=== PATIENT | male | born 1975 | race Two or more races ===

== ENCOUNTER 2025-10-29 05:28 | Inpatient (IN) | payer OTHER, SELFPAY ==
[2025-10-29] VITALS (7 sets, daily range): BP systolic 115–179; BP diastolic 77–111; BMI 33.1
[2025-10-29] MEDS: ZOFRAN 4 MG IV (00:57)
[2025-10-29] MEDS: DILAUDID 1 MG IV (00:57)
[2025-10-29 01:01] LABS: Hematocrit 41.5 % (39.0-52.0); Hemoglobin 14.6 g/dL (13.0-18.0); Mean Corp Hgb Conc. 35.2 g/dL (33.0-37.0); Mean Corpuscular Volume 85.2 fL (80.0-94.0); Nucleated Red Blood Cells % 0 % (-); Platelet Count 258 10^3/uL (130-400); Red Cell Dist. Width 12.5 % (11.5-14.5)
[2025-10-29 01:09] LABS: ALT (SGPT) 25 U/L (0-50); AST (SGOT) 41 U/L (17-59); Albumin 4.3 g/dl (3.5-5.0); Alkaline Phosphatase 53 U/L (38-126); Blood Urea Nitrogen 16 mg/dl (9-20); Calcium 9.2 mg/dl (8.4-10.2); Carbon Dioxide 29 mmol/L (22-30); Chloride 102 mmol/L (98-107); Estimated Creatinine Clearance 110 ml/min; Glucose 111 mg/dl (70-99); Potassium 3.6 mmol/L (3.5-5.1); Sodium 138 mmol/L (135-145); Total Protein 6.9 g/dl (6.3-8.2); eGFR > 60.00
[2025-10-29] MEDS: DILAUDID 0.5 MG IV ×2 (01:19→01:54)
[2025-10-29 03:27] LABS: Urine Character Clear (Clear)
--- NOTE | 2025-10-29 03:51 | ED.GENMED ---
History of Present Illness
General
Chief Complaint: Post Operative Problem(s)
Source: patient and family
Exam Limitations: none
Time Seen by Provider: 10/29/25 00:19
Nursing documentation reviewed up to this point in time: agreed with
History of Present Illness
History of Present Illness:
Note:
CHIEF COMPLAINT(S)
Abdominal pain.
HISTORY OF PRESENT ILLNESS
The patient is a 50-year-old male presenting with acute abdominal pain. He reports the onset of symptoms two days ago with increasing severity. The patient describes the pain as a bloating/sharp sensation in his abdomen, which is consistent with
discomfort. He mentions finding relief in specific positions, suggesting some positional variation in pain relief. The patient denies experiencing fever; however, his awareness of any fever is uncertain. The patient attempted self-care measures with
[id number] medications like acetaminophen, which provided no relief. He also reports an inability to retain fluids, as attempting to drink water leads to vomiting. Patient had had a cystoscopy with TURP procedure after a CT urogram showed
possible endophytic mass posterior aspect of the bladder suspicious for transitional cell carcinoma. He had this procedure by Dr. Brandan Martin ([phone]) on Monday at [facility]. At
ALLERGIES
No known drug allergies
Physical examination:
Nursing notes reviewed and agree with documentation. Allergy list reviewed and noted.
PHYSICAL EXAMINATION:
GENERAL APPEARANCE: The patient is alert, oriented to person, place, and time, in moderate acute to severe flank pain
VITAL SIGNS: Reviewed and agree with documentation
HENT: Head is normocephalic and atraumatic. The sinuses are nontender.The nares are patent. Oropharynx is clear
EYES: Pupils are equal and reactive to light and accommodation. Extraocular muscles intact. Conjunctiva normal, Sclera normal. Eyelids normal to inspection
NECK: Supple without lymphadenopathy. Trachea is midline. Normal range of motion
CARDIOVASCULAR: Regular rate and rhythm. Heart sounds normal
RESPIRATORY/CHEST: No respiratory distress noted. Clear to auscultation, bilaterally, no crackles, rales or wheezes are heard. Equal chest expansion
ABDOMEN: Soft, nontender, nondistended with good bowel sounds heard.
BACK: Normal inspection, left side CVA tenderness.
UPPER EXTREMITIES: Range of motion normal, Motor strength normal, no cyanosis, no edema.
LOWER EXTREMITIES: Normal range of motion, Motor strength normal, no cyanosis, no edema.
NEUROLOGICAL: Gross nonfocal. Speech normal, GCS 15, No obvious cerebellar deficits noted. Memory is intact. Cranial nerves intact to screening exam
SKIN: Warm and dry, no rash or lesion, no discoloration, skin intact.
PSYCH: Normal and appropriate interaction. Normal affect
PLAN
1. Administer medication for pain relief.
2. Conduct a thorough abdominal examination.
3. Perform blood work to aid in diagnosis and assess for potential causes of abdominal pain.
4. Perform a CT scan
DIFFERENTIAL DIAGNOSIS
The Differential Diagnosis includes, in no particular order and is not limited to:
1. Postoperative swelling/obstruction
2. Constipation
3. Abdominal hernia
4. Bleeding peptic ulcer disease
5. Intestinal obstruction
6. Pancreatitis
7. Colitis
8. Gallbladder disease
9. Renal colic
10. Mesenteric ischemia
Disposition:
SUMMARY OF ENCOUNTER
A 50-year-old male presented with acute abdominal pain. The pain, described as a sharp, bloating sensation, began two days prior to the visit and progressively worsened. The patients attempts at self-care, including taking acetaminophen, were
ineffective, and he experienced vomiting when trying to drink fluids. There was no confirmed fever. Based on the evaluation and recommendations from surgical consultations, it was determined that the patient would benefit from continued observation
and pain management.
Spoke with Dr. Mckinney, urology who is aware of patient's condition and surgical procedure. Patient to be made NPO. Dr. Mckinney reviewed the scan personally and diagnosed swelling about the ureter.
DISPOSITION
Admit for continued observation and pain control.
ASSESSMENT
The patients symptoms are suggestive of an acute abdominal condition, with potential differential diagnoses including abdominal hernia, intestinal obstruction, pancreatitis, or other gastrointestinal issues. The pains positional variability and
severe nature necessitate inpatient observation and management.
PLAN
1. Admit the patient for ongoing monitoring and pain management.
2. Conduct a thorough abdominal examination and continue assessing changes in symptoms.
3. Perform necessary blood work and imaging to identify the cause of the pain.
MEDICAL DECISION MAKING
- Number and Complexity of Problems Addressed: Chronic conditions affecting care and differential diagnosis include gastroenteritis, constipation, abdominal hernia, bleeding peptic ulcer disease, intestinal obstruction, pancreatitis, colitis,
gallbladder disease, renal colic, and mesenteric ischemia.
DIAGNOSIS
1. Abdominal pain, unspecified (R10.9)
2. Vomiting (R11.10)
Phy Exam
Physical Exam
Physical Exam:
.
Course
Orders/Labs/Results
Orders:
Orders
10/29/25 00:37
CMP [Comprehensive Metabolic Panel] Urgent
Complete Blood Count/With Diff Urgent
10/29/25 00:43
CT Abd/pelvis W Iv Cont Urgent
Comment:
Reason For Exam: llq pain s/p bladder mesh removal
HYDROmorphone [Dilaudid] 1 mg IV NOW STA
Ondansetron Injectable [Zofran] 4 mg IV NOW STA
10/29/25 00:58
Lactic Acid Urgent
10/29/25 01:15
HYDROmorphone [Dilaudid] 0.5 mg IV NOW STA
10/29/25 01:48
HYDROmorphone [Dilaudid] 0.5 mg IV NOW STA
10/29/25 03:02
Urinalysis Reflex To Culture Urgent
Date Specimen was Collected: 10/29/25
Time Specimen was Collected: 02:17
Urine Microscopic Reflex Cult Urgent
10/29/25 04:43
Ketorolac [Toradol] 15 mg IV NOW STA
10/29/25 05:17
Admit/Transfer Patient As Directed
Co-Sign Provider:
Level of Care: Inpatient admission
Assign to:: Medical/Surgical
Physician / Group: Boaz William
Diagnosis: Left kidney hydronephrosis
Reason for Hospitalization: iv analgesic
urology eval
may need pcn
Expected length of stay greater than two midnights?: Yes
ELOS- Estimated Length of Stay in days: 2
I certify the patient meets the requirements for IP care: Yes
PRN Pain Medication Management As Directed
May give lesser potent ordered pain med per pt: Yes
preference::
Protocol:: Medication orders for pain may be administered in a
manner that supports deferring to patient preference
when the pt is:
- Requesting an ordered lesser potent pain medication.
Least to most potent pain medications are defined
as: acetaminophen < NSAID < tramadol < opioids
(morphine, oxycodone, hydromorphone).
- Requesting a lesser dose of the same medication IF
ORDERED.
- Requesting a less intrusive route of administration
if both routes are prescribed by the provider (PO <
IV).
10/29/25 05:21
Code Status As Directed
Resuscitation Status: Full Code
10/29/25 05:23
Urine Culture Stat
SUSANNE Source: Urine
Specimen Description:
Obtained by: [facility]
Date Specimen was Collected: 10/29/25
Time Specimen was Collected: 05:27
10/29/25 05:44
Bisacodyl [Dulcolax] 10 mg RECTAL [id number] PRN
Docusate W/Senna [Senokot-S] 1 tablet PO BIDPRN PRN
HYDROmorphone [Dilaudid] 0.5 mg IV Q3HPRN PRN
HYDROmorphone [Dilaudid] 1 mg IV Q3HPRN PRN
Polyethylene Glycol Powder [Miralax] 17 grams PO DAILYPRN PRN
10/29/25 05:44
UROLOGY CONSULT Routine
Consulting Provider: Frantz Mckinney
Was physician already notified: Yes
Activity As Directed
Activity Level: As Tolerated
Vital Signs As Directed
Frequency: Per unit guidelines
DX Deep Vein Thrombosis Video Routine
10/29/25 Breakfast
NPO
Allow oral meds: Yes
Allow clear liquids: Sips of Clears
NPO with Ice Chips: Yes
Basic Metabolic Panel IN AM
Complete Blood Count/No Diff IN AM
0.45% Sodium Chloride 1000 ml [0.45%NaCl] 1,000 ml IV 80 mls/hr
Cefepime HCl [Maxipime] 1,000 mg IV Q8H
10/29/25 07:00
Ondansetron Injectable [Zofran] 4 mg IV Q6HPRN PRN
10/29/25 13:00
Ketorolac [Toradol] 15 mg IV Q8HPRN PRN
10/29/25 18:00
Enoxaparin Sodium [Lovenox] 40 mg SC QPM
Abnormal Lab Results
10/29/25 10/29/25
00:37 03:02
WBC 14.4 H 10^3/uL
(4.8-10.8)
Abs Immat Gran (auto) 0.1 H 10^3/uL
(0-0.05)
Absolute Neuts (auto) 11.6 H 10^3/uL
(1.4-6.5)
Absolute Monos (auto) 1.0 H 10^3/uL
(0.1-0.6)
Neutrophils % 80.5 H %
(42.2-75.2)
Lymphocytes % 11.2 L %
(20.5-51.1)
Glucose 111 H mg/dl
(70-99)
Ur Occult Blood Reflex 4+ A
(Negative)
Urine RBC >100 A /HPF
(0-2)
Urine Bacteria (Reflex) Few A
(Negative)
Urine Albumin (Reflex) 2+ A
(Neg - Trace)
10/29/25 00:37
10/29/25 00:37
Vital Signs
Initial and Last Documented VS:
Initial Vital Signs
Temp Pulse Resp BP Pulse Ox
98.0 F 72 17 173/107 98
10/29/25 00:20 10/29/25 00:20 10/29/25 00:20 10/29/25 00:20 10/29/25 00:20
Last Documented Vital Signs
Temp Pulse Resp BP Pulse Ox
98.0 F 52 16 179/111 94
10/29/25 00:20 10/29/25 05:10 10/29/25 05:10 10/29/25 05:10 10/29/25 05:10
*Pulse Oximetry
SaO2: 95
Oxygen Mode of Delivery: Room air
Patient hypoxic: no
*Critical Care Note
Total Time (30-74mins, 75-104mins- exclusive of procedures): Not Applicable
Update Note
Update Note:
CT ABDOMEN AND PELVIS WITH IV CONTRAST
Comparison: None available
IMPRESSION:
--Mild left-sided hydroureteronephrosis with delayed nephrogram and absent contrast excretion on the delayed phase, and associated left perinephric/periureteral fat stranding.
--Suspect there is obstruction of the distal left ureter secondary to focal wall thickening of the left posterior bladder at the UVJ. This bladder wall thickening may be reflective of postprocedural edema but possibility of an underlying neoplasm
is not excluded.
--Correlate clinically for superimposed urinary tract infection/pyonephritis.
--Trace gas in the urinary bladder, likely residual from the recent cystoscopy.
--Spleen is enlarged up to 14.2 cm. Small probable cyst in the inferior aspect.
--Cholecystectomy.
--No evidence for bowel obstruction or free air.
Case finalized on 10/29/25 02:[address] Fontaine, urology. He agrees with plan to admit patient for pain control. He has reviewed the CAT scan. We sent for records at [facility]. We were able to see discharge summary. We did determine the surgeon of record.
Opass this information. Brandan Martin [phone]. Patient to be admitted to the hospital service for pain control.
ED Attending Note
-
Portions of this chart may have been created with voice recognition software.� Occasional wrong word or��sound alike� substitutions may have occurred due to the inherent limitations of voice recognition software.
Discharge Plan
Departure
Patient Disposition: Admit
Date of Disposition: 10/29/25
Time of Disposition: 05:29
Presentation/result/management discussed w/ accepting MD/DO: Hospitalist
Discharge Problem:
Post-operative pain
Interventions
Interventions:
*Risk Screen - Suicide Last Done: 10/29/25 00:20
*General Assessment Last Done: 10/29/25 00:20
*Neglect/Abuse Screening Last Done: 10/29/25 00:20
*ED COVID-19 Vaccine History Last Done: 10/29/25 00:41
*ED Influenza Vaccine History Last Done: 10/29/25 00:41
[facility] Fall Risk Assessment Tool Last Done: 10/29/25 00:44
ED-Skin Assessment Last Done: 10/29/25 00:41
[2025-10-29 03:55] LABS: Urine Red Blood Cell >100 /HPF (0-2)
[2025-10-29] MEDS: TORADOL 15 MG IV (05:07)
--- NOTE | 2025-10-29 05:29 | HPS.HSE ---
Family Physician
-
Family Physician: Russell Lopez MD
Chief Complaint
-
flank pain post procedure
History of Present Illness
50 male history of bladder mass currently being worked up by urology at [place]. On 10/27/2025 had a cystoscopy with biopsy by Brandan Martin urology at [place] now presenting with acute onset left flank pain. Postprocedure noticed some blood
in urine that resolved and some burning with urination that resolved. Was tolerating procedure well up until last night when sharp intermittent pain occurred. In intensity continued to increase throughout. Not having difficulty urinating at this
time. No fevers or chills. States presented to [facility] ER due to severity of pain to get pain under control.
ED physician called urology recommended to admit here and urology will evaluate in the morning. May require PCN. Admit due to intractable pain requiring that has not resolved with multiple doses of IV analgesics
Medical History
Past Medical History
Past Medical History: Reports None
Past Surgical History: Reports Appendectomy, Cholecystectomy and Urological
Social History
Tobacco: Smoker (1ppd)
Alcohol: None
Drug: None
Family History
Family History: Not pertinent
Allergies / Home Medications
Allergies reflects when Allergies were last updated in [employer].
Home Medications with original date entered in [employer]
Allergy/Medication List:
Allergies
Allergy/AdvReac Type Severity Reaction Status Date / Time
No Known Allergies Allergy Unverified 10/29/25 00:20
Home Medications
cefuroxime axetil 500 mg tablet 500 mg PO BID 10/29/25
metaxalone 800 mg tablet 800 mg PO TID PRN back pain 10/29/25
phenazopyridine 200 mg tablet 200 mg PO TID 10/29/25
Review of Systems
-
A 12 point ROS was completed and negative except as noted: Yes
Physical Exam
Vital Signs
Vital Signs
Temp Pulse Resp BP Pulse Ox
98.0 F 52 16 179/111 94
10/29/25 00:20 10/29/25 05:10 10/29/25 05:10 10/29/25 05:10 10/29/25 05:10
Physical Exam
General: Well Developed, Well Nourished and No Apparent Distress
HEENT: NormoCephalic, Anicteric and Moist mucous membranes
Respiratory: Clear
Cardiac: S1/S2 and Regular Rhythm
GI: Soft, Non Tender, Non Distended and Normal Bowel Sounds
Genito-urinary: No costovertebral tender; No Costovertebral angle tend
Musculoskeletal: No Clubbing and No Cyanosis
Skin: Warm and Dry
Neuro: Awake and AO x 3
Psych: Calm
Laboratory Results
-
10/29/25 00:37
10/29/25 00:37
Laboratory Results
Lactic Acid 1.4 mmol/L (0.7-2.0) 10/29/25 00:58
Total Bilirubin 0.5 mg/dl (0.2-1.3) 10/29/25 00:37
AST 41 U/L (17-59) 10/29/25 00:37
ALT 25 U/L (0-50) 10/29/25 00:37
Alkaline Phosphatase 53 U/L (38-126) 10/29/25 00:37
Impression/Plan
-
Left-sided hydronephrosis secondary to bladder wall thickening likely in the setting of postprocedural edema but possibly of underlying neoplasm and potentially superimposed UTI/pyelonephritis
--Post procedure was prescribed 3days of cefuroxime BID, on final day
IV fluids
IV analgesics
IV cefepime
Urine culture
May require PCN
N.p.o.
Urology consult
Leukocytosis
Could be related to infection with UTI/Pylonephritis though no CVA tenderness and UA with few bacteria though on antibiotics
Will provider pseudomonal coverage due to manipulation
UCx
Tobacco use
Nicotine patch
DVT ppx
LWMH
[2025-10-29] MEDS: MAXIPIME 1000 MG IV (06:23)
[2025-10-29] MEDS: 0.45%NACL 1000 IV (06:23)
[2025-10-29] MEDS: STERILE WATER FOR INJECTION 10 ML IV (06:24)
[2025-10-29 06:51] LABS: Hematocrit 40.8 % (39.0-52.0); Hemoglobin 13.9 g/dL (13.0-18.0); Mean Corp Hgb Conc. 34.1 g/dL (33.0-37.0); Mean Corpuscular Volume 85.4 fL (80.0-94.0); Platelet Count 236 10^3/uL (130-400); Red Cell Dist. Width 12.7 % (11.5-14.5)
[2025-10-29 07:08] LABS: Blood Urea Nitrogen 17 mg/dl (9-20); Calcium 9.3 mg/dl (8.4-10.2); Carbon Dioxide 29 mmol/L (22-30); Chloride 104 mmol/L (98-107); Estimated Creatinine Clearance 92 ml/min; Glucose 108 mg/dl (70-99); Potassium 3.8 mmol/L (3.5-5.1); Sodium 137 mmol/L (135-145); eGFR > 60.00
--- NOTE | 2025-10-29 09:12 | CM ---
chart reviewed and spoke with patient, son and dtr at ED beside
Lives in [address] with , dtr, and son
Independent no DME
Working as [employer]
PCP Giovanna Lopez
[facility] [place]
no hx of VN nor SNF
DCP is to go home with no needs
family can drive him home
NO cm needs but available for any needs
--- NOTE | 2025-10-29 09:12 | W.DCSUMMARY ---
Discharge Summary
Discharge Data
Date of Admission: 10/29/25
Date of Discharge: 10/29/25
-
Pending Results: No
Hospital Course
Discharge diagnosis:
Left hydroureteronephrosis
Bladder mass status post cystoscopy with biopsy 10/27/2025
Leukocytosis
Obesity due to excess calories
Consults: Urology
CT abdomen and pelvis:
1. Mild left hydroureteronephrosis, left ureter is dilated to the level of the urinary bladder. Delayed excretion of contrast by the left kidney relative to the right.
2. There is bladder wall thickening at the level of the left ureteral orifice, measuring up to 1 cm in thickness. This may represent post procedure edema/hemorrhage, neoplasm should be excluded based on results of cystoscopy.
3. Left-sided perinephric stranding, likely related to inflammatory process. Ascending urinary tract infection should be excluded clinically.
4. Small nodular opacities at the right lung base, likely reflective of rounded atelectasis. As per Fleischner Society recommendations, no further CT follow-up is required unless the patient is high risk for lung carcinoma, in which case a follow-up
chest CT should be considered in approximately 12 months.
Hospital course:
50-year-old male with a past medical history of obesity and bladder mass status post cystoscopy with biopsy on 10/27/2025 was admitted for few hours for severe left-sided flank pain. CT of the abdomen and pelvis shows mild left hydroureteronephrosis
with bladder wall thickening and left sided perinephric stranding. He did have an initial leukocytosis, that improved. He was afebrile. Urine analysis was not suggestive of acute urinary tract infection. Suspect patient's bladder wall thickening
and left-sided perinephric stranding were due to his recent bladder mass biopsy.
Patient was seen in conjunction with urology. His pain subsided with IV Toradol. Urology recommends discharge home with oral Toradol, and patient can follow-up with his usual urologist. Since he is afebrile, and his urine analysis was not
suggestive of acute urinary tract infection, he can finish up his prophylactic antibiotics that he received by his urologist on 10/27/2025. He needs to follow-up with his urologist as soon as possible.
Disposition: Home self-care
Discharge planning: Required 38 minutes
Discharge Plan
-
Patient Disposition: Home (Routine Discharge)
Discharge Diagnosis/Procedures: Left ureterohydronephrosis, bladder mass with recent cystoscopy and biopsy
Condition: Fair
Diet: Regular
Activity: As tolerated
Driving Restrictions: As prior to admission
Activity Restrictions/Additional Instructions:
If you have any worsening pain, please go to [facility] where you had the procedure.
Please follow-up with your urologist as soon as possible.
Referrals:
Russell Lopez MD [Family Provider, Internal Medicine] - in less than 1 week
Prescriptions:
New
ketorolac 10 mg tablet
10 mg PO QID PRN (Reason: Pain) 5 Days Qty: 20 0RF
Rx Instructions:
maximum total duration of 5 days from all oral, intranasal, or parenteral formulations
Continued
phenazopyridine 200 mg Tablet
200 mg PO TID
cefuroxime axetil 500 mg Tablet
500 mg PO BID
Rx Instructions:
for 3 days starting 10/27/25
metaxalone 800 mg Tablet
800 mg PO TIDPRN PRN (Reason: back pain)
Discharge Orders:
Discharge Patient (As Directed); Ordered 10/29/25
Ordered By: Kendall Thapa
Discharge Date and Time
Discharge Date/Time: 10/29/25 10:20
Print Language: Serbian
--- NOTE | 2025-10-29 10:20 | PTCARENOTE ---
Patient ambulating in room with a steady gait. Patient rates his Left flank pain as minimal and denies need for pain med at present. Patient's son and daughter are in room and assist with translation when needed. Discharge instructions reviewed with
patient and son.
--- NOTE | 2025-10-29 11:31 | EDRN ---
this ghost writer is completing the ED nursing disposition and did not provide direct patient care during this visit. This patient was held in the ED while awaiting inpatient bed. Discharged from the ED prior to receiving admission bed.
--- NOTE | 2025-10-29 16:18 | CONS.URO ---
Consultation
-
Date/Time Consultation Performed: 81410/29/25
Performing Provider: Peffer
Reason for Consultation: Hydronephrosis
Medical History
History of Present Illness
50M with history of a bladder tumor s/p resection by Dr. Martin at [facility]
This was done on 10/27
Since surgery he has had intermittent L flank pain worsening over time
Pain intermittent
Belching/nausea when trying to take PO fluids
No fevers/chills
CT scan showed mild L hydronephrosis to level of the bladder with delayed excretion on post contrast film
No stones seen
Patient was admitted due to intractable pain
Past Medical History
Past Medical History: Other (Bladder tumor)
Family History
Family History: Reviewed & Not Pertinent
Allergies/Home Medications
Allergies
Allergy/AdvReac Type Severity Reaction Status Date / Time
No Known Allergies Allergy Unverified 10/29/25 00:20
Home Medications
�Medication �Instructions �Recorded �Confirmed �Type
cefuroxime axetil 500 mg tablet 500 mg PO BID 10/29/25 10/29/25 History
ketorolac 10 mg tablet 10 mg PO QID PRN Pain 5 days #20 10/29/25 Rx
tabs
metaxalone 800 mg tablet 800 mg PO TIDPRN PRN back pain 10/29/25 10/29/25 History
phenazopyridine 200 mg tablet 200 mg PO TID 10/29/25 10/29/25 History
Physical Exam
Vital Signs
Vital Signs
Temp Pulse Resp BP Pulse Ox
97.8 F 88 16 115/77 92
10/29/25 07:23 10/29/25 07:23 10/29/25 07:23 10/29/25 07:23 10/29/25 07:23
Lab / Testing Results
Laboratory Results
10/29/25 06:22
10/29/25 06:22
Physical Exam
General: Well Developed and Well Nourished
Respiratory: Clear and Non Labored Respirations
GI: Soft and Non Tender
Genito-urinary: No Costovertebral Tend
Neuro: AO x 3
Psych: Calm and Intact Judgement
Assessment / Plan
-
50M with L hydronephrosis and intractable flank pain 2 days post TURBT
Reviewed case with Dr. Martin
There was a tumor near, but not involving the L ureteral orifice
He did not have to resect over the orifice itself
- Offered OR today for ureteral stent placement
- Given significantly improved pain this AM, patient prefers to avoid additional procedures or manipulation
- Suggested overnight observation for recurrent severe pain prior to discharge, which patient also refuses
- Stable for discharge with PO toradol PRN and follow up with Dr. Martin. Images and labs forwarded to him to eval
- Return to [place] ER with fevers/chills, intractable pain, etc
Total time spent on eval, image review, discussion with outside physician, corordination of care 90 minutes
== END 2025-10-29 10:20 | disposition home or self-care (01) | DRG 694 ==
LOC: ED 05:28
PROVIDERS: ADMITTING PHYSICIAN Hospitalist; ATTENDING PHYSICIAN Family Medicine; CONSULT PHYSICIAN Urology; EMERGENCY PHYSICIAN Student in an Organized Health Care Education/Training Program; FAMILY PHYSICIAN Student in an Organized Health Care Education/Training Program
DX: N13.30 Unspecified hydronephrosis (principal); J98.11 Atelectasis; E66.09 Other obesity due to excess calories; D72.829 Elevated white blood cell count, unspecified; F17.210 Nicotine dependence, cigarettes, uncomplicated; Z90.49 Acquired absence of other specified parts of digestive tract; Z68.33 Body mass index [BMI] 33.0-33.9, adult
CPT/HCPCS: 74177; 80048; 80053; 81003; 81015; 83605; 85025; 85027; 87086; Q9967